=== PATIENT | male | born 1940 | race Caucasian/White ===

== ENCOUNTER → 2017-11-19 | Outpatient (CLI) | payer MEDICARE ==
[~2017-11-19] MED LIST: ASPI-650 PO; GLYB5TAB3 PO; METO25TA35 PO; MULT1TAB9 PO; WARF7.5T6 PO-COUM
== END | disposition home or self-care (01) ==
LOC: CFH 09:33
PROVIDERS: ATTEND Specialist
DX: M79.604 Pain in right leg (principal); M79.605 Pain in left leg; R60.0 Localized edema; I26.99 Other pulmonary embolism without acute cor pulmonale; C20 Malignant neoplasm of rectum; Z86.711 Personal history of pulmonary embolism
CPT/HCPCS: 93970; 93978